=== PATIENT | female | born 1950 | race Caucasian/White ===

== ENCOUNTER 2024-10-11 09:03 | Emergency (ER) | payer OTHER ==
[~2024-10-11] VITALS: Ht 160 cm; Wt 63.5 kg
[2024-10-11] MEDS ORDERED: STIOLTO RESPIMAT4 G1 IH (09:20)
[2024-10-11] MEDS ORDERED: AMLODIPINE BESYL5 MG PO (09:20)
[2024-10-11] MEDS ORDERED: EZETIMIBE10 M6 PO (09:21)
[2024-10-11] MEDS ORDERED: ATOR10 (09:21)
== END 2024-10-11 10:50 | disposition home or self-care (01) ==
LOC: ER 09:03
DX: M62.831 Muscle spasm of calf (principal); Z79.899 Other long term (current) drug therapy
CPT/HCPCS: 93971; 99283-25